=== PATIENT | female | born 1975 | race Caucasian/White ===

== ENCOUNTER → 2023-08-15 09:41 | Outpatient (CLI) | payer OTHER, SELFPAY | PROVIDERS: PCP Family Medicine; Referring Provider Obstetrics & Gynecology Reproductive Endocrinology; Visit Provider Obstetrics & Gynecology Reproductive Endocrinology | DX: Z32.00 Encounter for pregnancy test, result unknown (principal) | CPT/HCPCS: 36415; 84702 ==

== ENCOUNTER → 2023-09-01 09:42 | Outpatient (CLI) | payer OTHER, SELFPAY ==
--- NOTE | 2023-09-01 09:43 | DI.US.S_ITS ---
PROCEDURE: US OB <= 14 WEEKS FETUS INDICATIONS: Encounter for test, result unknown OUTSIDE/PRIOR DATING DATA: IVF transfer: 08/17/2023. First dating scan (date and location): 09/01/2023. Estimated date of delivery (PRABHJOT) from first dating scan: 04/26/2024. TECHNIQUE: Real-time scanning was performed of the fetus and maternal pelvic organs, with image documentation. Endovaginal scanning was also performed to better visualize the fetus and maternal ovaries. COMPARISON: None. FINDINGS: Embryo: Single live intrauterine is present with crown-rump length measuring 4 mm corresponding to 6 weeks 0 days. Heart rate: 116 beats per minute. Maternal organs: Ovaries are unremarkable. Posterior fibroid is present measuring 3.0 x 2.6 x 2.8 cm. . IMPRESSION: Single live intrauterine with gestational age 6 weeks 0 days. Posterior uterine fibroid. We strive to produce accurate, complete, and clear reports of imaging services. To assist us in improving patient care, this report was composed using standard report templates and voice recognition software. Therefore, it may contain abnormal punctuation, insertions and/or omissions. Occasional wrong-word or sound-alike substitutions may occur. Though we review the report and make efforts to correct it, we do recommend that the report be read carefully in proper context to recognize any text inaccuracies. Dictated by: Monik Rowell M.D. on 09/02/2023 at 15:19 Approved by: Monik Rowell M.D. on 09/02/2023 at 15:20
== END ==
LOC: US 09:43
PROVIDERS: PCP Family Medicine; Referring Provider Obstetrics & Gynecology Reproductive Endocrinology; Visit Provider Obstetrics & Gynecology Reproductive Endocrinology
DX: O34.11 Maternal care for benign tumor of corpus uteri, first trimester (principal); Z3A.01 Less than 8 weeks gestation of pregnancy; Z31.7 Encounter for procreative management and counseling for gestational carrier; N97.9 Female infertility, unspecified
CPT/HCPCS: 76801; 76817

== ENCOUNTER → 2023-09-17 15:05 | Outpatient (CLI) | payer OTHER, SELFPAY ==
--- NOTE | 2023-09-17 | DI.US.S_ITS ---
P soft ROCEDURE: US OB <= 14 WEEKS FETUS INDICATIONS: Encounter for test, result unknown OUTSIDE/PRIOR DATING DATA: IVF: 08/17/2023 (approximate). First dating scan (date and location): 09/01/2023. Estimated date of delivery (PRABHJOT) from first dating scan: 04/26/2024. TECHNIQUE: Real-time scanning was performed of the fetus and maternal pelvic organs, with image documentation. Endovaginal scanning was also performed to better visualize the fetus and maternal ovaries. COMPARISON: [facility], OB <= 14 WEEKS FETUS, 09/01/2023, 10:04. FINDINGS: Embryo: [place]-rump length measures 2.2 cm, 8 weeks and 6 days. A yolk sac is present. Heart rate: 169 Maternal organs: Left ovary is within normal limits. Right ovary is not well seen. Miscellaneous: Multiple uterine fibroids, the largest of which in the subserosal fundus measures 2.8 x 3.3 x 3.1 cm. IMPRESSION: 1. Single living intrauterine gestation with estimated gestational age of 8 weeks and 6 days based on today's ultrasound. 2. heart rate is 169. Dictated by: Vicky Mcdaniel M.D. on 09/18/2023 at 14:26 Approved by: Vicky Mcdaniel M.D. on 09/18/2023 at 14:29
== END ==
PROVIDERS: PCP Family Medicine; Referring Provider Obstetrics & Gynecology Reproductive Endocrinology; Visit Provider Obstetrics & Gynecology Reproductive Endocrinology
DX: O09.01 Supervision of pregnancy with history of infertility, first trimester (principal); Z52.810 Egg (Oocyte) donor under age 35, anonymous recipient; Z52.819 Egg (Oocyte) donor, unspecified; Z31.7 Encounter for procreative management and counseling for gestational carrier; N97.9 Female infertility, unspecified; Z3A.08 8 weeks gestation of pregnancy
CPT/HCPCS: 76801; 76817